=== PATIENT | female | born 1965 | race Caucasian/White ===

== ENCOUNTER 2016-12-13 15:03 | Observation (INO) | payer OTHER ==
[~2016-12-13] VITALS: Ht 157.5 cm; Wt 81.5 kg
[2016-12-13 15:36] LABS: EOSINOPHIL COUNT 0.1 K/uL (0-0.3); HEMATOCRIT 36.1 % (36.0-46.0); IMMATURE GRANULOCYTE (%) 0.4 % (0.0-0.7); INSTRUMENT ABS NEUTROPHIL CT 6.1 K/uL; LYMPHOCYTE COUNT 1.5 K/uL (1.0-2.8); MCH 30.6 PG (29.0-34.0); MCHC 34.1 G/DL (30.0-36.0); MCV 89.8 FL (83-99); MONOCYTE (%) 6.6 % (3-12); MONOCYTE COUNT 0.5 K/uL (0-0.8); NEUTROPHIL (%) 74.1 % (45-76); NEUTROPHIL COUNT 6.1 K/uL (1.8-6.4); PLATELET COUNT 239 K/uL (156-360); RBC DIS.WIDTH-CV 12.3 % (11.8-14.6); RBC DIS.WIDTH-SD 40.6 % (39-53); RED BLOOD COUNT 4.02 M/uL (3.80-5.20); WHITE BLOOD COUNT 8.2 K/uL (4.1-10.2)
[2016-12-13 15:41] LABS: AMYLASE 43 IU/L (1-118); CHLORIDE 97 mEq/L (99-109); POTASSIUM 4.1 mEq/L (3.7-5.4); SODIUM 131 mEq/L (136-147)
[2016-12-13 15:43] LABS: GLUCOSE 110 mg/dL (70-99)
[2016-12-13 15:45] LABS: ANION GAP 11 MEQ/L (2-14)
[2016-12-13 15:47] LABS: SERUM ETHYL ALCOHOL < 10 mg/dL
[2016-12-13 15:48] LABS: UREA NITROGEN (BUN) 6 mg/dL (9-23)
[2016-12-13 15:50] LABS: LIPASE 18 U/L (1.0-51.0)
[2016-12-13 15:54] LABS: GFR ESTIMATE (CALCULATED) > 59 mL/min/
[2016-12-13 15:56] LABS: QUANTITATIVE HCG < 4.0 MIU/ML
[2016-12-13 18:11] LABS: ADD MIUA? YES; BILIRUBIN NEGATIVE; BLOOD NEGATIVE; COLOR YELLOW ((YELLOW)); GLUCOSE (STRIP) NEGATIVE; KETONES NEGATIVE; LEUKOCYTES NEGATIVE; NITRITE NEGATIVE; PROTEIN (STRIP) NEGATIVE; SPECIFIC GRAVITY 1.026 (1.000-1.030); UROBILINOGEN 0.2 MG/DL (0.2-1.0)
[2016-12-13 18:21] LABS: BACTERIA NONE SEEN /HPF; EPITHELIAL CELLS 1+ /HPF; MUCUS TRACE /LPF; RED BLOOD CELLS 0-5 /HPF (0-5); UCUL ADDED? NO; WHITE BLOOD CELLS 0-5 /HPF (0-5)
[2016-12-13 18:22] LABS: ADD MEDTOX COMMENT Y; AMPHETAMINE PRESUMPTIVE POSITIVE (500 ng/mL); BARBITURATES NEGATIVE (200 ng/mL); BENZODIAZEPINES NEGATIVE (150 ng/mL); COCAINE NEGATIVE (150 ng/mL); INTERNAL CONTROLS VALID? YES; METHADONE NEGATIVE (200 ng/mL); METHAMPHETAMINE NEGATIVE (500 ng/mL); OPIATES (MORPHINE) NEGATIVE (100 ng/mL); OXYCODONE NEGATIVE (100 ng/mL); PHENCYCLIDINE NEGATIVE (25 ng/mL); PROPOXYPHENE NEGATIVE (300 ng/mL); THC CANNABINOIDS NEGATIVE (50 ng/mL); TRICYCLIC ANTIDEPRESSANTS NEGATIVE (300 ng/mL)
[2016-12-14 00:51] VITALS: BP 120/63
[2016-12-14] MEDS ORDERED: VYVANSE20 MG PO (03:18)
[2016-12-14] MEDS ORDERED: ADDERALL5 MG PO (03:19)
[2016-12-14] MEDS ORDERED: PROZAC10 MG PO (03:20)
[2016-12-14] MEDS ORDERED: WELLBUTRIN75 MG PO (03:20)
[2016-12-14] MEDS ORDERED: KLONOPIN0.5 M1 PO (03:23)
[2016-12-14] MEDS ORDERED: PRILOSEC20 MG PO (03:23)
[2016-12-14 03:45] VITALS: BP 94/52
[2016-12-14 08:30] VITALS: BP 116/66
[2016-12-14 11:53] VITALS: BP 107/66
[2016-12-14 16:09] VITALS: BP 114/69
[2016-12-14 19:51] VITALS: BP 122/64
[2016-12-15 00:08] VITALS: BP 113/60
[2016-12-15 07:39] VITALS: BP 121/92
[2016-12-15 10:29] VITALS: BP 124/76
[2016-12-15] MEDS ORDERED: ESTRACE0.5 MG PO (11:01)
[2016-12-15] MEDS ORDERED: ANTIVERT25 MG PO (11:53)
[2016-12-15] MEDS ORDERED: HYDROCODON-ACE1 EAC7 PO (11:53)
== END 2016-12-15 19:53 | disposition home or self-care (01) ==
LOC: EME 15:03 → TRA 15:03 → EDOF 23:11 → 5WEST 23:11 → EDOF 23:11 → ENRESERV 23:14 → 5WEST 12-14 00:27 → ENPENDDIS 12-15 13:00 → 5WEST 12-15 19:53
PROVIDERS: Emergency Medicine
DX: R42 Dizziness and giddiness (principal); S06.0X9A Concussion with loss of consciousness of unspecified duration, initial encounter; S00.03XA Contusion of scalp, initial encounter; S00.81XA Abrasion of other part of head, initial encounter; S02.2XXA Fracture of nasal bones, initial encounter for closed fracture; W19.XXXA Unspecified fall, initial encounter; Y92.481 Parking lot as the place of occurrence of the external cause; E87.1 Hypo-osmolality and hyponatremia; F32.9 Major depressive disorder, single episode, unspecified; F41.9 Anxiety disorder, unspecified; A69.20 Lyme disease, unspecified; F17.210 Nicotine dependence, cigarettes, uncomplicated; Z87.898 Personal history of other specified conditions; Z90.710 Acquired absence of both cervix and uterus; Z88.2 Allergy status to sulfonamides
CPT/HCPCS: 70450; 70486; 71260; 72125; 72129; 72132; 74177; 80048; 81003; 82150; 83690; 84702; 84999; 85025; 86850; 86900; 86901; 90839; 99281; 99285; G0378; G0480; G8978 GP CJ; G8979 GP CH; G8987 GO CJ; G8988 GO CH; J7030